=== PATIENT | female | born 1980 | race Hispanic/Latino ===

== ENCOUNTER 2017-12-21 19:47 | Emergency (ER) | payer OTHER ==
[~2017-12-21] VITALS: Ht 157.5 cm; Wt 116.1 kg
[~2017-12-21 19:47] MED LIST: AMOXIL500 MG PO; DEPO-PROVER150 MG/ML IM; FLU VACCINE 0.0.5 ML IM; ROBITUSSIN W/CO10 ML PO
[2017-12-21] MEDS ORDERED: NORCO 5-325 TA1 EACH PO (22:44)
[2017-12-21 22:46] VITALS: BP 134/99
--- NOTE | 2017-12-21 22:46 | ED GENERAL ADULT ---
History of Present Illness General Chief Complaint: Low Back Pain/Injury Stated Complaint: BACK PAIN Source: patient Exam Limitations: no limitations Vital Signs & Intake/Output Vital Signs & Intake/Output Vital Signs Date Time Temp Pulse Resp B/P B/P Pulse O2 O2 Flow FiO2 Mean Ox Delivery Rate 12/21 2033 97.7 111 18 142/93 96 Room Air Allergies Coded Allergies: NO KNOWN ALLERGIES (06/23/14) Reconcile Medications Amoxicillin (Amoxil) 500 MG CAP 1 TAB PO TID BRONCHITIS Flu Vaccine (Flu Vaccine 0.5 Ml (NORVATIS)) 0.5 ML SYR 0.5 ML IM ONCE VACCINE (Reported) Hydrocodone/Acetaminophen (Madeline 5-325 Tablet) 5 MG-325 MG TABLET 1 TAB PO Q4- 6 PRN PRN SEVERE PAIN Medroxyprogesterone Acetate (Depo-Provera) 150 MG/ML SYRINGE 1 ML IM Q3M CONTROL (Reported) Robitussin AC (Guaifenesin-Codeine Syrup) 200 MG-20 MG/10 ML LIQUID 10 ML PO Q6P PRN COUGH Triage Note: PT TO TRIAGE C/O R LOWER BACK PAIN X 2 DAYS. PER PT WORSE WITH MOVEMENT, DENIES NUMBNESS/TINGLING IN LEGS. PER PT "I HAD BACK SPASMS LAST WEEK ON THE L SIDE." PT TOOK IBUPROFEN 800 MG AND USED HEATING PAD WITHOUT EFFECT. Triage Nurses Notes Reviewed? yes Onset: Abrupt Duration: day(s): (2-3), constant, continues in ED, getting worse Timing: single episode today Injury Environment: home Severity: moderate, severe Severity Numbers: 8 No Modifying Factors: none Associated Symptoms: back pain LMP (ages 10-50): unknown : No Patient currently breastfeeds: No HPI: 37 Y/O female no past medical history presents for evaluation of back pain. Patient states that this started 2 or 3 days ago and the persistent. The pain is located on the right side of the lower and mid back and does not radiate. It is worse with movement. There was no direct trauma or triggering event. She does not she had similar symptoms on the left side a couple weeks ago that resolved. She went to her primary care doctor was given a prescription for IBUProfen Flexeril which she's been taking without any improvement. No numbness or tingling. She does report some urinary frequency but no urgency or dysuria. No abdominal pain no fevers. No bowel or bladder dysfunction. (Derrek Vivas) Past History Travel History Traveled to [place] past 21 day No Medical History Any Pertinent Medical History? see below for history Neurological: NONE EENT: NONE Cardiovascular: NONE Respiratory: NONE Gastrointestinal: NONE Hepatic: NONE Renal: NONE Musculoskeletal: NONE Psychiatric: NONE Endocrine: NONE Blood Disorders: NONE Cancer(s): NONE GRAIN ELEVATOR WORKER/Reproductive: NONE Surgical History Surgical History: non-contributory Psychosocial History What is your primary language Somali Tobacco Use: Current Daily Use Daily Tobacco Use Amount/Type: => 5 Cigarettes daily Family History Hx Contributory? No (Derrek Vivas) Review of Systems Review of Systems Constitutional: Reports: no symptoms. EENTM: Reports: no symptoms. Respiratory: Reports: no symptoms. Cardiovascular: Reports: no symptoms. GI: Reports: no symptoms. Genitourinary: Reports: frequency. Musculoskeletal: Reports: see HPI, back pain. Skin: Reports: no symptoms. Neurological/Psychological: Reports: no symptoms. Hematologic/Endocrine: Reports: no symptoms. Immunologic/Allergic: Reports: no symptoms. All Other Systems: Reviewed and Negative (Derrek Vivas) Physical Exam Physical Exam General Appearance: well developed/nourished, no apparent distress, alert, awake , obese Head: atraumatic, normal appearance Eyes: Bilateral: normal appearance, PERRL, EOMI. Ears, Nose, Throat: hearing grossly normal Neck: normal inspection, supple, full range of motion Respiratory: normal breath sounds, chest non-tender, no respiratory distress, lungs clear Cardiovascular: regular rate/rhythm, normal peripheral pulses Peripheral Pulses: 2+ radial (R), 2+ radial (L) Gastrointestinal: normal bowel sounds, soft, non-tender, no organomegaly Back: normal inspection, decreased range of motion, muscle spasm, no vertebral tenderness, lumbar paraspinous muscles tender to palpation. She does have some superficial tenderness around the right costovertebral angle. No bruising swelling or abrasions no step offs or deformities no midline pain Extremities: normal inspection, normal range of motion, no edema, straight leg raised (negative bilaterally) Neurologic/Psych: no motor/sensory deficits, awake, alert, oriented x 3, normal gait, normal mood/affect Reflexes: 1+: knee (R), knee (L). Skin: intact, normal color, warm/dry Core Measures ACS in differential dx? No CVA/TIA Diagnosis: No Sepsis Present: No Sepsis Focused Exam Completed? No (Derrek Vivas) Progress Differential Diagnoses I considered the following diagnoses in my evaluation of the patient: [Muscle spasm, muscle strain, herniated disc, pyelonephritis, kidney stone, cauda equina , osteoarthritis] Plan of Care: Orders Procedure Date/time Status URINE 12/22 2215 Complete URINALYSIS 12/22 2215 Complete Laboratory Tests 12/21/172224: Urine Color YEL, Urine Clarity CLEAR, Urine pH 6.0, Ur Specific [place] >= 1.030 , Urine Protein NEG, Urine Ketones NEG, Urine Nitrite NEG, Urine Bilirubin NEG, Urine Urobilinogen 0.2, Ur Leukocyte Esterase NEG, Ur Microscopic SEDIMENT EXAMINED, Urine RBC 1-3, Urine WBC RARE, Ur Epithelial Cells FEW, Urine Bacteria RARE H, Urine Mucus FEW, Urine Hemoglobin TRACE-INTACT, Urine Glucose NEG, Urine Test NEGATIVE Patient seen and evaluated. She has right sided mid and lower back pain. The pain is worse with movement. No signs of cauda equina. Urinalysis is negative for signs of infection. Pain is very producible with range of motion and palpation. Suspect muscle skeletal etiology. Patient will be given a prescription for Madeline to use for severe pain only. Rest avoid excessive physical activity. No bed rest. Apply heating pad. Continue ibuprofen and Flexeril as needed. Discussed return precautions follow-up with primary care doctor patient agrees the plan Initial ED EKG: none (Derrek Vivas) Departure Departure Disposition: HOME OR SELF CARE Condition: Stable Clinical Impression Primary Impression: Low back pain Qualifiers: Chronicity: acute Back pain laterality: right Sciatica presence: without sciatica Qualified Code: M54.5 - Low back pain Referrals: Caroline Stevens MD (PCP/Family) Additional Instructions: Rest, avoid heavy lifting bending or excessive physical activity. Continue Tylenol or Profen as needed for pain. Madeline for severe pain only this may cause drowsiness. Make a follow-up appointment with YOUr primary care doctor for a recheck. Monitor symptoms closely and return with any concerns Departure Forms: Customer Survey General Discharge Information Prescriptions: Current Visit Scripts Hydrocodone/Acetaminophen (Madeline 5-325 Tablet) 1 TAB PO Q4-6 PRN PRN SEVERE PAIN #8 TAB (Derrek Vivas) PA/CATALOGUE COMPILER Co-Sign Statement Statement: ED Attending supervision documentation- [] I saw and evaluated the patient. I have also reviewed all the pertinent lab results and diagnostic results. I agree with the findings and the plan of care as documented in the PA's/CATALOGUE COMPILER's documentation. [x] I have reviewed the ED Record and agree with the PA's/CATALOGUE COMPILER's documentation. [] Additions or exceptions (if any) to the PAs/CATALOGUE COMPILER's note and plan are summarized below: [] (Shaquille SILVER,Gibson Bang) Critical Care Note Critical Care Note Critical Care Time: non-applicable (Derrek Vivas)
== END 2017-12-21 22:58 ==
LOC: ERH 19:47
DX: M54.5 Low back pain (principal)
CPT/HCPCS: 81001; 81025; 96372; J1885